=== PATIENT | male | born 1985 ===

== ENCOUNTER 2017-11-19 09:49 | Emergency (ER) | payer SELFPAY ==
[~2017-11-19] VITALS: Ht 154.9 cm; Wt 61.2 kg
[2017-11-19 10:36] LABS: BASOPHILS % (AUTO) 0 % (0-10); EOSINOPHILS # (AUTO) 0.3 10^3/uL (0.0-0.3); EOSINOPHILS % (AUTO) 3 % (0-10); HEMATOCRIT 43 % (40-54); HEMOGLOBIN 14.6 G/DL (13.3-17.7); LYMPHOCYTES # (AUTO) 2.3 X 10^3 (1.0-4.0); LYMPHOCYTES % (AUTO) 31 % (12-44); MEAN CORPUSCULAR HEMOGLOBIN 27 PG (25-34); MEAN CORPUSCULAR HGB CONC 34 G/DL (32-36); MEAN CORPUSCULAR VOLUME 79 FL (80-99); MEAN PLATELET VOLUME 9.4 FL (7.4-10.4); MONOCYTES # (AUTO) 0.3 X 10^3 (0.0-1.0); MONOCYTES % (AUTO) 4 % (0-12); NEUTROPHILS # (AUTO) 4.7 X 10^3 (1.8-7.8); NEUTROPHILS % (AUTO) 61 % (42-75); PLATELET COUNT 335 10^3/uL (130-400); RED BLOOD COUNT 5.45 10^6/uL (4.35-5.85); RED CELL DISTRIBUTION WIDTH 13.9 % (10.0-14.5); WHITE BLOOD COUNT 7.6 10^3/uL (4.3-11.0)
[2017-11-19] MEDS ORDERED: fentaNYL INJECTION 100 MCG/2 ML AMP IVP ONE (10:45)
[2017-11-19 10:53] LABS: ALANINE AMINOTRANSFERASE 18 U/L (0-55); ALBUMIN 4.6 GM/DL (3.2-4.5); ALKALINE PHOSPHATASE 59 U/L (40-136); BILIRUBIN,TOTAL 0.7 MG/DL (0.1-1.0); BUN/CREATININE RATIO 11; CALCIUM 9.9 MG/DL (8.5-10.1); CARBON DIOXIDE 26 MMOL/L (21-32); CHLORIDE 105 MMOL/L (98-107); GFR ESTIMATED > 60; GLUCOSE 91 MG/DL (70-105); POTASSIUM 3.9 MMOL/L (3.6-5.0); SODIUM 140 MMOL/L (135-145); TOTAL PROTEIN 7.9 GM/DL (6.4-8.2)
[2017-11-19 11:13] LABS: BILIRUBIN,URINE NEGATIVE (NEGATIVE); CLARITY,URINE CLEAR; COLOR,URINE YELLOW; GLUCOSE, URINE (UA) NEGATIVE (NEGATIVE); KETONES,URINE NEGATIVE (NEGATIVE); LEUKOCYTE ESTERASE ,URINE NEGATIVE (NEGATIVE); NITRITE,URINE NEGATIVE (NEGATIVE); PH,URINE 8 (5-9); PROTEIN,URINE NEGATIVE (NEGATIVE); UROBILINOGEN,URINE NORMAL (NORMAL)
[2017-11-19 11:24] LABS: BACTERIA,URINE NEGATIVE /HPF
[2017-11-19] MEDS ORDERED: CATHETER FLUSH 10 ML SYR IV PRN (11:45)
[2017-11-19] MEDS ORDERED: IOHEXOL 350 MG/ML 100 ML (OMNIPAQUE 350) VIAL IV ONE (11:45)
[2017-11-19] MEDS ORDERED: NS 250 ML (IVPB) BAG IV ONE (11:45)
--- NOTE | 2017-11-19 12:21 | Diagnostic Imaging Report ---
INDICATION: Left groin and testicular pain. TECHNIQUE: Multiple real-time grayscale images were obtained over the scrotum in various projections bilaterally. FINDINGS: The right testicle measures 4.5 x 2.3 x 3.3 cm and the left testicle measures 4.5 x 2.4 x 3.1 cm. Both testes demonstrate homogeneous echotexture. No discrete testicular mass is detected. There is normal blood flow to both testes. The epididymides are unremarkable. No hydroceles are seen. Sonographic interrogation of the area of pain superior to the left testicle was performed and no abnormalities detected. IMPRESSION: Unremarkable scrotal ultrasound. Dictated by: Dictated on workstation # [id number]
--- NOTE | 2017-11-19 13:18 | Diagnostic Imaging Report ---
PROCEDURE: CT abdomen and pelvis with contrast, rule out appendicitis. TECHNIQUE: Multiple contiguous axial images were obtained through the abdomen and pelvis after the administration of intravenous contrast. INDICATION: Pelvic pain, left flank pain, testicle pain. COMPARISON: None. FINDINGS: There is dependent atelectasis in the lung bases. The heart is normal in size. There is no pericardial effusion. No acute osseous abnormality is seen. No focal liver lesion is seen. The spleen appears normal. The pancreas is normal. The adrenal glands are normal. The kidneys are normal. There is no hydronephrosis seen. The bowel loops are nondistended without evidence of obstruction. The appendix is normal (image 108 series 4). No free fluid is seen. The seminal vesicles appear mildly prominent and there is mild heterogeneous enhancement of the prostate. No acute osseous abnormality is seen. IMPRESSION: 1. Mild prominence of the seminal vesicles and heterogeneous enhancement of the prostate. This could represent prostatitis/vesiculitis, please correlate with clinical findings. Dictated by: Dictated on workstation # [id number]
[2017-11-19] MEDS ORDERED: KETOROLAC 30 MG/ML VIAL IVP ONE (13:30)
[2017-11-19] MEDS ORDERED: cefTRIAXone INJECTION 1,000 MG in NS (IVPB) 50 ML IV ONE (13:30)
[2017-11-19] MEDS ORDERED: AZITHROMYCIN 250 MG TAB (ZITHROMAX) PO ONE (13:30)
[2017-11-19] MEDS ORDERED: LEVO500T2 PO (14:08)
--- NOTE | 2017-11-19 14:11 | ED Back Pain ---
General Chief Complaint: Back Problems Stated Complaint: LOWER BACK PAIN,LOWER PELVIC PAIN Nursing Triage Note: ABMULATED TO ROOM 05. ON HOLD FOR LANGUAGE [employer] 10 MINUTES. PT COMPLAINS OF PAIN LEFT BACK THAT RADIATES INTO PELVIC AREA AFTER WORKING WITH [employer] 1 WEEK AGO. STATES HE DOES NOT WANT IT TURNED INTO WORKMANS COMP ET JUST WANTS TO KNOW WHAT IS WRONG. Nursing Sepsis Screen: No Definite Risk Source of Information: Patient, Hotel Or Motel Cleaning Supervisor Exam Limitations: Language Barrier History of Present Illness Date Seen by Provider: November 19, 2017 Time Seen by Provider: 10:15 Initial Comments This 31-year-old gentleman presents to the emergency room with complaints of pain that started near the left flank and has radiated around to the pelvis and testicles. Pain is gradually worsened over the last 10 days. He now seems in distress secondary to the pain. He denies any dysuria or hematuria. He notes difficulty with ejaculation and pain with ejaculation. There is no blood in his semen. He denies any fever, nausea, vomiting, diarrhea, or constipation. He has no significant health history. He has no primary care provider. He reports a monogamous relationship with one partner over the last year. Allergies and Home Medications Allergies Coded Allergies: No Known Drug Allergies (Unverified , 11/19/17) Home Medications Levofloxacin 500 Mg Tablet, 500 MG PO DAILY Prescribed by: FRANCISCO HERNANDEZ on 11/19/17 2688 Patient Home Medication List Home Medication List Reviewed: Yes Constitutional: no symptoms reported EENTM: see HPI Respiratory: no symptoms reported Cardiovascular: no symptoms reported Gastrointestinal: see HPI Genitourinary: see HPI Musculoskeletal: no symptoms reported Skin: no symptoms reported Psychiatric/Neurological: No Symptoms Reported Past Skfayji-Npvmpe-Lfiuze Hx Patient Social History Alcohol Use: Denies Use Recreational Drug Use: No Smoking Status: Never a Smoker Recent Foreign Travel: No Contact w/Someone Who Travel: No Recent Infectious Disease Expo: No Recent Hopitalizations: No Seasonal Allergies Seasonal Allergies: No Past Medical History Surgeries: No Respiratory: No Cardiac: No Neurological: No Genitourinary: No Gastrointestinal: No Musculoskeletal: No Endocrine: No HEENT: No Cancer: No Psychosocial: No Integumentary: No Physical Exam Vital Signs Vital Signs - First Documented 11/19/17 10:00 Temp 98.0 Pulse 75 Resp 18 B/P (MAP) 119/87 (98) Pulse Ox 99 Capillary Refill : Less Than 3 Seconds General Appearance: WD/WN, Mild Distress HEENT: PERRL/EOMI, Normal ENT Inspection Neck: Normal Inspection Cardiovascular: Regular Rate, Rhythm, No Edema, No Murmur Respiratory: Lungs Clear, Normal Breath Sounds, No Accessory Muscle Use, No Respiratory Distress Gastrointestinal: Normal Bowel Sounds, Soft, Tenderness (Throughout the pelvic region, left greater than right) Genital/Rectal: Normal Genital Exam, Tenderness (Bilateral testicles are tender to the touch without inflammatory changes), Other (Normal penis and foreskin with no pain, erythema, or discharge. 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 Norm as Tested Skin: Normal Color, Warm/Dry Lymphatic: No Adenopathy; No Inguinal Node Tender (L), No Inguinal Node Tender (R) Progress/Results/Core Measures Results/Orders Lab Results Laboratory Tests Test 11/19/17 10:12 11/19/17 11:03 Range/Units White Blood Count 7.6 4.3-11.0 10^3/uL Red Blood Count 5.45 4.35-5.85 10^6/uL Hemoglobin 14.6 13.3-17.7 G/DL Hematocrit 43 40-54 % Mean Corpuscular Volume 79 L 80-99 FL Mean Corpuscular Hemoglobin 27 25-34 PG Mean Corpuscular Hemoglobin Concent 34 32-36 G/DL Red Cell Distribution Width 13.9 10.0-14.5 % Platelet Count 335 130-400 10^3/uL Mean Platelet Volume 9.4 7.4-10.4 FL Neutrophils (%) (Auto) 61 42-75 % Lymphocytes (%) (Auto) 31 12-44 % Monocytes (%) (Auto) 4 0-12 % Eosinophils (%) (Auto) 3 0-10 % Basophils (%) (Auto) 0 0-10 % Neutrophils # (Auto) 4.7 1.8-7.8 X 10^3 Lymphocytes # (Auto) 2.3 1.0-4.0 X 10^3 Monocytes # (Auto) 0.3 0.0-1.0 X 10^3 Eosinophils # (Auto) 0.3 0.0-0.3 10^3/uL Basophils # (Auto) 0.0 0.0-0.1 10^3/uL Sodium Level 140 135-145 MMOL/L Potassium Level 3.9 3.6-5.0 MMOL/L Chloride Level 105 98-107 MMOL/L Carbon Dioxide Level 26 21-32 MMOL/L Anion Gap 9 5-14 MMOL/L Blood Urea Nitrogen 9 7-18 MG/DL Creatinine 0.80 0.60-1.30 MG/DL Estimat Glomerular Filtration Rate > 60 BUN/Creatinine Ratio 11 Glucose Level 91 70-105 MG/DL Calcium Level 9.9 8.5-10.1 MG/DL Total Bilirubin 0.7 0.1-1.0 MG/DL Aspartate Amino Transf (AST/SGOT) 19 5-34 U/L Alanine Aminotransferase (ALT/SGPT) 18 0-55 U/L Alkaline Phosphatase 59 40-136 U/L Total Protein 7.9 6.4-8.2 GM/DL Albumin 4.6 H 3.2-4.5 GM/DL Urine Color YELLOW Urine Clarity CLEAR Urine pH 8 5-9 Urine Specific Jackson 1.010 L 1.016-1.022 Urine Protein NEGATIVE NEGATIVE Urine Glucose (UA) NEGATIVE NEGATIVE Urine Ketones NEGATIVE NEGATIVE Urine Nitrite NEGATIVE NEGATIVE Urine Bilirubin NEGATIVE NEGATIVE Urine Urobilinogen NORMAL NORMAL MG/DL Urine Leukocyte Esterase NEGATIVE NEGATIVE Urine RBC (Auto) NEGATIVE NEGATIVE Urine RBC NONE /HPF Urine WBC NONE /HPF Urine Squamous Epithelial Cells NONE /HPF Urine Crystals NONE /LPF Urine Bacteria NEGATIVE /HPF Urine Casts NONE /LPF Urine Mucus NEGATIVE /LPF Urine Culture Indicated NO Urine Chlamydia trachomatis RNA Not Detected Not Detected Urine Neisseria gonorrhoeae RNA Not Detected Not Detected Micro Results Microbiology 11/19/17 Urine Culture - Final, Complete NO GROWTH My Orders Orders - FRANCISCO FELIZ MD Cbc With Automated Diff (11/19/17 10:32) Comprehensive Metabolic Panel (11/19/17 10:32) Ua Culture If Indicated (11/19/17 10:32) Saline Lock/Iv-Start (11/19/17 10:32) Fentanyl Injection (Sublimaze Injection (11/19/17 10:45) Ct Abd/Pelv W (Appendicitis) (11/19/17 11:25) Us Scrotum (Testicle) 33200 (11/19/17 11:25) Iohexol Injection (Omnipaque 350 Mg/Ml 1 (11/19/17 11:45) Ns (Ivpb) (Sodium Chloride 0.9%) (11/19/17 11:45) Pharmacy Communication (Pharmacy Communi (11/19/17 11:32) Sodium Chloride Flush (Catheter Flush Sy (11/19/17 11:45) Chlamydia Dna Urine Test (11/19/17 13:28) Neis Ricardo Dna Urine Test (11/19/17 13:28) Urine Culture (11/19/17 13:28) Ceftriaxone Injection (Rocephin Injectio (11/19/17 13:30) Azithromycin Tablet (Zithromax Tablet) (11/19/17 13:30) Ketorolac Injection (Toradol Injection) (11/19/17 13:30) Medications Given in ED Vital Signs/I&O 11/19/17 11/19/17 10:00 14:33 Temp 98.0 Pulse 75 59 Resp 18 18 B/P (MAP) 119/87 (98) 92/59 Pulse Ox 99 98 Blood Pressure Mean: 98 Progress Progress Note : Progress Note Patient's pain was treated with fentanyl. Because of the extent of his pain, workup was pursued with labs and UA. There were no significant findings. Again because of the significance of his pain, further workup was pursued. CT scan was performed and revealed possible prostatitis/vesiculitis. Patient was empirically treated with Rocephin and azithromycin. Pain was further treated with Toradol. He was given a prescription for Levaquin to follow his empiric antibiotic therapy. A follow-up appointment was made with [facility] to review culture results. A note for work was provided. Diagnostic Imaging Diagonstic Imaging: CT Plain Films/CT/US/NM/MRI: abdomen, pelvis Comments CT abdomen and pelvis viewed by me and report reviewed. See report below: NAME: LY BRUNER [facility] REC#: [id number] PT STATUS: DEP ER : 1985 PHYSICIAN: FRANCISCO FELIZ MD ADMIT DATE: 11/19/17/ER Signed Date of Exam: 11/19/17 CT ABD/PELV W (APPENDICITIS) PROCEDURE: CT abdomen and pelvis with contrast, rule out appendicitis. TECHNIQUE: Multiple contiguous axial images were obtained through the abdomen and pelvis after the administration of intravenous contrast. INDICATION: Pelvic pain, left flank pain, testicle pain. COMPARISON: None. FINDINGS: There is dependent atelectasis in the lung bases. The heart is normal in size. There is no pericardial effusion. No acute osseous abnormality is seen. No focal liver lesion is seen. The spleen appears normal. The pancreas is normal. The adrenal glands are normal. The kidneys are normal. There is no hydronephrosis seen. The bowel loops are nondistended without evidence of obstruction. The appendix is normal (image 108 series 4). No free fluid is seen. The seminal vesicles appear mildly prominent and there is mild heterogeneous enhancement of the prostate. No acute osseous abnormality is seen. IMPRESSION: 1. Mild prominence of the seminal vesicles and heterogeneous enhancement of the prostate. This could represent prostatitis/vesiculitis, please correlate with clinical findings. Dictated by: Dictated on workstation # [id number] Dict: 11/19/17 1302 Trans: 11/19/17 1521 Interpreted by: ITZEL FRIED MD Electronically signed by: ITZEL FRIED MD 11/19/17 1521 Diagonstic Imaging: Ultrasound Plain Films/CT/US/NM/MRI: other (Scrotum) Comments Scrotal ultrasound report reviewed. See report below: NAME: LY BRUNER [facility] REC#: [id number] PT STATUS: DEP ER : 1985 PHYSICIAN: FRANCISCO FELIZ MD ADMIT DATE: 11/19/17/ER Signed Date of Exam: 11/19/17 US SCROTUM (Testicle) 26333 INDICATION: Left groin and testicular pain. TECHNIQUE: Multiple real-time grayscale images were obtained over the scrotum in various projections bilaterally. FINDINGS: The right testicle measures 4.5 x 2.3 x 3.3 cm and the left testicle measures 4.5 x 2.4 x 3.1 cm. Both testes demonstrate homogeneous echotexture. No discrete testicular mass is detected. There is normal blood flow to both testes. The epididymides are unremarkable. No hydroceles are seen. Sonographic interrogation of the area of pain superior to the left testicle was performed and no abnormalities detected. IMPRESSION: Unremarkable scrotal ultrasound. Dictated by: Dictated on workstation # [id number] Dict: 11/19/17 1210 Trans: 11/19/17 1740 Interpreted by: DEBORA FIGUEROA MD Electronically signed by: DEBORA FIGUEROA MD 11/19/17 174 Departure Impression Primary Impression: Prostatitis Qualified Codes: N41.0 - Acute prostatitis Additional Impressions: Pelvic pain Other ejaculatory dysfunction Disposition: HOME, SELF-CARE Condition: Improved Departure-Patient Inst. Decision time for Depature: 13:50 Referrals: [facility],LOCAL PHYSICIAN (PCP) Primary Care Physician Patient Instructions: Prostatitis Add. Discharge Instructions: Your follow-up appointment is with Laureen Ma at 11:40 on Saturday, November 27 at [facility]. Complete your antibiotics as prescribed. For pain take ibuprofen up to 600 mg every 6 hours as needed. Add Tylenol ( acetaminophen) up to 1000 mg every 6 hours as needed. Drink plenty of clear liquids. No sexual intercourse until cleared in your follow-up appointment. Return to the emergency room if symptoms worsen. All discharge instructions reviewed with patient and/or family. Voiced understanding. Scripts Levofloxacin (Levaquin) 500 Mg Tablet 500 MG PO DAILY, #10 TAB Prov: FRANCISCO FELIZ MD 11/19/17 Work/School Note: Work Release Form Date Seen in the Emergency Department: November 19, 2017 Return to Work: November 21, 2017 Restrictions: No Restrictions Copy Copies To 1: ERIC MORALES JOSHUA T MD November 19, 2017 14:11
[2017-11-19 14:33] VITALS: BP 92/59
== END 2017-11-19 14:33 | disposition home or self-care (01) ==
LOC: ER 09:58
DX: N41.0 Acute prostatitis (principal); N53.19 Other ejaculatory dysfunction
CPT/HCPCS: 36415; 74177; 76870; 80053; 81000; 85025; 87088; 87491; 87591; 96365; 96375